=== PATIENT | female | born 1990 | race American Indian/Alaskan Native ===

== ENCOUNTER 2018-02-20 15:45 | Emergency (ER) | payer OTHER ==
[2018-02-20] MEDS ORDERED: NORCO 7.5/325 PO ONE (19:20)
[2018-02-20] MEDS ORDERED: MOTRIN PO ONE (19:20)
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
[2018-02-20] MEDS ORDERED: ZOFRAN ODT PO ONE (21:50)
[2018-02-20] MEDS ORDERED: ZOFRAN ODT ONE (21:51)
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
[2018-02-21] MEDS ORDERED: NORCO 7.5/325 PO ONE (00:52)
[2018-02-21] MEDS ORDERED: FLEXERIL PO ONE (00:52)
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
[2018-02-21 01:15] VITALS: BP 109/79
== END 2018-02-21 01:19 | disposition home or self-care (01) ==
LOC: ED 15:45
DX: M54.2 Cervicalgia (principal); M54.5 Low back pain; M54.89 Other dorsalgia; V89.2XXA Person injured in unspecified motor-vehicle accident, traffic, initial encounter; Y93.89 Activity, other specified; Y99.8 Other external cause status; Y92.410 Unspecified street and highway as the place of occurrence of the external cause
CPT/HCPCS: 72040; 72070; 72100; 99283; Q0162